=== PATIENT | female | born 1945 | race Caucasian/White ===

== ENCOUNTER → 2017-04-07 | Outpatient (CLI) | payer OTHER ==
--- NOTE | ~2017-04-07 | 2DMMODE ---
[facility] [place] [address] 2 D/M-MODE ECHOCARDIOGRAM Name: BJBOGDAN Candace Room #: REG [facility]#: [id number] Admission: 04/07/17 Attend Phys: Daniol Shipman MD Discharge: Date of : 41 Date of Service: 04/07/17 1059 Report #: [id number] THIS REPORT FOR: //name// APPROVED REPORT Study performed: 04/07/2017 09:28:50 EXAM: Comprehensive 2D, Doppler, and color-flow Echocardiogram Patient Location: Echo lab Status: routine BSA: 1.85 HR: 64 bpm BP: 149/85 mmHg Other Information Study Quality: Good Indications Atrial Fibrillation Pacemaker 2D Dimensions RVDd: 36.42 mm LVEF(%): 53.14 (>50%) IVSd: 11.22 (7-11mm) LVOT Diam: 20.30 (18-24mm) LVDd: 36.73 mm PWd: 11.89 (7-11mm) Ascending Ao: 24.44 (22-36mm) LVDs: 26.90 (25-40mm) Aortic Root: 27.10 mm IVC: 18.00 mm Angeles's LVEF: 53.14 % Volumes Left Atrial Volume (Systole) Single Plane 4CH: 54.48 mL Single Plane 2CH: 39.97 mL LA ESV Index: 28.00 mL/m2 Aortic Valve AoV Peak Terence.: 1.85 m/s AO Peak Gr.: 13.67 mmHg LVOT Max P.22 mmHg LVOT Max V: 0.90 m/s PENELOPE Vmax: 1.57 cm2 Mitral Valve E/A Ratio: 0.9 MV Decel. Time: 239.06 ms [facility] [address] [place] [address] 2 D/M-MODE ECHOCARDIOGRAM Name: BOGDAN LORENZO Room #: REG [facility]#: [id number] Admission: 04/07/17 Attend Phys: Danilo Shipman MD Discharge: Date of : 41 Date of Service: 04/07/17 1059 Report #: [id number] MV E Max Terence.: 0.80 m/s MV A Terence.: 0.93 m/s MV PHT: 69.33 ms IVRT: 128.03 ms Pulmonary Valve PV Peak Terence.: 1.53 m/s PV Peak Gr.: 9.44 mmHg Pulmonary Vein P Vein S: 0.56 m/s P Vein A: 0.18 m/s P Vein D: 0.66 m/s P Vein A Dur.: 128.0 msec P Vein S/D Ratio: 0.85 Tricuspid Valve TR Peak Terence.: 3.00 m/s RAP Estimate: 5.00 mmHg TR Peak Gr.: 36.00 mmHg PA Pressure: 41.00 mmHg Left Ventricle The left ventricle is normal size. There is normal left ventricular wall thickness. The left ventricular systolic function is normal. The left ventricular ejection fraction is within the normal range. LVEF is 60-65%. Mild diastolic dysfunction is present (impaired relaxation pattern). Right Ventricle Right ventricle is at the upper limits of normal. The right ventricular systolic function is normal. Atria The left atrium size is normal. The right atrium size is normal. Aortic Valve Aortic valve leaflets are mildly thickened. Trace aortic regurgitation. There is no aortic valvular stenosis. Mitral Valve The mitral valve is normal in structure. Mild mitral regurgitation. No evidence of mitral valve stenosis. Tricuspid Valve The tricuspid valve is normal in structure. Mild to moderate tricuspid regurgitation. Pulmonic Valve [address] [address] 2 D/M-MODE ECHOCARDIOGRAM Name: BOGDAN LORENZO Candace [id number] Admission: 04/07/17 Attend Phys: Danilo Shipman MD Discharge: Date of : 41 Date of Service: 04/07/17 1059 Report #: [id number] The pulmonary valve is normal in structure. Mild pulmonic regurgitation. Great Vessels The aortic root is normal in size. IVC is normal in size and collapses >50% with inspiration. Pericardium There is no pericardial effusion. <Conclusion> The left ventricle is normal size. The left ventricular systolic function is normal. Mild diastolic dysfunction is present (impaired relaxation pattern). The left atrium size is normal. Trace aortic regurgitation. Mild mitral regurgitation. Mild to moderate tricuspid regurgitation. There is no pericardial effusion. <ELECTRONICALLY SIGNED> By: Danilo Shipman MD 04/07/17 1059 1059 1059 Danilo Shipman MD /INF
== END ==
LOC: CV 07:54
DX: I08.1 Rheumatic disorders of both mitral and tricuspid valves (principal); I48.91 Unspecified atrial fibrillation; Z95.0 Presence of cardiac pacemaker

== ENCOUNTER → 2017-10-06 | Outpatient (CLI) | payer OTHER | LOC: NUC 10-04 10:04 | DX: I48.91 Unspecified atrial fibrillation (principal); I25.10 Atherosclerotic heart disease of native coronary artery without angina pectoris; Z95.0 Presence of cardiac pacemaker ==

== ENCOUNTER → 2019-08-01 | Outpatient (CLI) | payer OTHER ==
[~2019-08-01] MED LIST: ARICEPT10 M1 PO; CALCIUM500 MG PO; CENTRUM SILVER1 EAC5 PO; FLONASE 0.05%50 MCG NASAL; FOSAMAX 70 MG T70 MG PO; FUROSEMIDE 40 M40 MG PO; KLOR-CON 10 ER10 MEQ PO; PROBIOTIC1 EAC7 PO; TOPROL XL100 MG PO; XARELTO10 MG PO
== END ==
LOC: SJCVCIMAG 11:02
PROVIDERS: ATTEND Internal Medicine Cardiovascular Disease
DX: Z45.018 Encounter for adjustment and management of other part of cardiac pacemaker (principal); R94.31 Abnormal electrocardiogram [ECG] [EKG]; I08.8 Other rheumatic multiple valve diseases; I11.0 Hypertensive heart disease with heart failure; I50.9 Heart failure, unspecified; I44.2 Atrioventricular block, complete; I47.2 Ventricular tachycardia; Z79.899 Other long term (current) drug therapy

== ENCOUNTER → 2019-08-03 | Outpatient (CLI) | payer OTHER | LOC: SJCVCIMAG 09:28 | DX: Z01.818 Encounter for other preprocedural examination (principal); I47.2 Ventricular tachycardia; I48.91 Unspecified atrial fibrillation; I49.3 Ventricular premature depolarization; Z95.0 Presence of cardiac pacemaker ==

== ENCOUNTER → 2019-08-09 | Outpatient (CLI) | payer OTHER ==
--- NOTE | ~2019-08-09 | P ---
[facility] [address] [place] [address] PROCEDURE REPORT Name: BOGDAN LORENZO Room #: REG [facility] Smith.#: [id number] Admission: 08/09/19 Attend Phys: Davi Santos MD Discharge: Date of : 41 Report #: [id number] THIS REPORT FOR: cc: Leonidas Fernandez,Leonidas Marlow,Davi Amos MD ~ CC: Leonidas Santos DATE OF SERVICE: 08/09/2019 PREOPERATIVE DIAGNOSES: 1. Nonsustained ventricular tachycardia. 2. Complete heart block. 3. Pacemaker close to elective replacement indicator. HISTORY: The patient is a 74-year-old female who recently had a prolonged episode of nonsustained VT noted on her pacemaker lasting approximately 20 seconds. To further work this up, she underwent an echocardiogram and nuclear stress test, both of which were within normal limits. The patient is here for EP study looking for inducible ventricular tachycardia. If the EP study is positive, she will undergo upgrade to an ICD. If the EP study does not induce VT, we will proceed with generator exchange today. PROCEDURES PERFORMED: 1. Noninvasive program stimulation, CPT code 27472. 2. Dual chamber pacemaker generator exchange. ANESTHESIA: The patient underwent MAC anesthesia with no anesthesia related complications. DESCRIPTION OF PROCEDURE: The patient underwent informed consent. We discussed the details of the procedure including the risks which include but not limited to bleeding, infection, vascular damage, cardiac perforation, pneumothorax. She understood these risks and is willing to proceed. The patient was brought to the EP laboratory in fasting and unsedated state and was prepped and draped in a standard fashion. Her pacemaker was interrogated. Then, using the pacemaker senior mainframe programmer analyst, I performed a noninvasive program stimulation and specifically we performed ventricular stimulation to look for inducible ventricular tachycardia. Ventricular ERP was noted at 280 milliseconds at [address] cycle length and VA ERP was noted at 300 milliseconds at [address] cycle length[address] I performed ventricular triplets at both [address] cycle lengths and we could not induce sustained monomorphic ventricular tachycardia. As such, we would proceed with pacemaker generator exchange. [facility] [address] [place] [address] PROCEDURE REPORT Name: BOGDAN LORENZO Candace Room #: REG [facility] Casie#: [id number] Admission: 08/09/19 Attend Phys: Davi Santos MD Discharge: Date of : 41 Report #: [id number] The patient was prepped in a standard fashion to where she received IV antibiotics and I injected lidocaine at the prior incision site. Incision was made, the chronic pocket was entered. I removed the old device and connected the new device. Tug tests were performed. The device was tested and found to be functioning normally. Pocket was irrigated with vancomycin and then the pocket was closed in 2 layers using 2-0 for the deep layer, 3-0 for the mid layer and surgical glue was placed for outer skin layer. The patient awoke neurologically and hemodynamically intact. No complications and no significant bleeding. The explanted pacemaker was a [employer], product #[id number], serial #[id number]. The new pacemaker was a [employer] model #W3DR01, serial #[id number]. The atrial lead was a [employer], model #1699TC, 46 cm, serial #[id number]. RV lead was a [employer], model #1688TC, 52 cm, serial #[id number]. Atrial lead demonstrated P-wave of 1.6 millivolts, pacing impedance of 380 ohms, pacing threshold 0.75 volts at 0.4 milliseconds. RV lead showed no underlying R waves, pacing impedance of 570 ohms and pacing threshold 0.75 volts at 0.4 milliseconds. The device was programmed to the DDDR 60-130 mode. CONCLUSIONS: 1. Noninvasive program stimulation with no induction of ventricular tachycardia. 2. Successful pacemaker generator exchange. By: [id number] Davi Santos MD /nt
[2019-08-09 07:58] LABS: ABSOLUTE NEUTROPHILS 3.7 thou/uL (1.4-8.2); BASOPHILS 0.6 % (0.0-2.0); EOSINOPHILS 1.7 % (0.0-3.0); HEMOGLOBIN 15.6 gm/dL (12.0-15.0); LYMPHOCYTES 28.1 % (24.0-44.0); MONOCYTES 5.9 % (1.0-8.0); PLATELET COUNT 215 thou/uL (150-400); POLYS 63.7 % (36.0-66.0); RBC 5.05 mil/uL (4.20-5.00); RDW 13.8 % (10.5-14.5); WBC 5.8 thou/uL (4.0-11.0)
[2019-08-09 08:01] LABS: CALCIUM 8.2 mg/dL (8.5-10.1); CREATININE 0.9 mg/dL (0.6-1.0); POTASSIUM 3.6 mmol/L (3.5-5.1)
[2019-08-09 08:08] LABS: ALBUMIN 3.9 g/dL (3.4-5.0); TOTAL BILIRUBIN 1.5 mg/dL (0.2-1.0); TOTAL PROTEIN 7.2 g/dL (6.4-8.2)
[2019-08-09 08:12] LABS: APTT 29.1 Seconds (24.5-32.8); PROTIME 10.6 Seconds (9.3-11.4)
== END | disposition home or self-care (01) ==
LOC: CATH 06:45
PROVIDERS: Internal Medicine Cardiovascular Disease
DX: Z45.010 Encounter for checking and testing of cardiac pacemaker pulse generator [battery] (principal); I47.2 Ventricular tachycardia; I44.2 Atrioventricular block, complete; I48.91 Unspecified atrial fibrillation; I11.0 Hypertensive heart disease with heart failure; I50.9 Heart failure, unspecified; Z98.890 Other specified postprocedural states; Z79.899 Other long term (current) drug therapy; Z90.49 Acquired absence of other specified parts of digestive tract; Z86.711 Personal history of pulmonary embolism; Z79.01 Long term (current) use of anticoagulants; Z87.01 Personal history of pneumonia (recurrent); Z11.59 Encounter for screening for other viral diseases
CPT/HCPCS: 62110; 62900; 70005

== ENCOUNTER → 2019-08-16 | Outpatient (CLI) | payer OTHER | LOC: SJCVC 12:44 | PROVIDERS: ATTEND Internal Medicine Infectious Disease | DX: Z45.018 Encounter for adjustment and management of other part of cardiac pacemaker (principal); R00.1 Bradycardia, unspecified; R55 Syncope and collapse; I48.0 Paroxysmal atrial fibrillation; I47.2 Ventricular tachycardia; I11.0 Hypertensive heart disease with heart failure; I50.9 Heart failure, unspecified; M06.9 Rheumatoid arthritis, unspecified; Z79.01 Long term (current) use of anticoagulants; Z82.49 Family history of ischemic heart disease and other diseases of the circulatory system; Z79.899 Other long term (current) drug therapy ==

== ENCOUNTER → 2020-08-18 | Outpatient (CLI) | payer OTHER | LOC: SJCVC 09:58 | PROVIDERS: ATTEND Internal Medicine Cardiovascular Disease | DX: I48.0 Paroxysmal atrial fibrillation (principal); R60.9 Edema, unspecified; I11.0 Hypertensive heart disease with heart failure; I50.9 Heart failure, unspecified; M06.9 Rheumatoid arthritis, unspecified; Z95.0 Presence of cardiac pacemaker; Z79.01 Long term (current) use of anticoagulants; Z79.899 Other long term (current) drug therapy; Z86.718 Personal history of other venous thrombosis and embolism; Z82.49 Family history of ischemic heart disease and other diseases of the circulatory system ==